=== PATIENT | male | born 1965 | race Caucasian/White ===

== ENCOUNTER 2016-11-05 08:00 | Outpatient (CLI) | payer MEDICAID | END 2016-11-05 08:01 | disposition home or self-care (01) | DX: I10 Essential (primary) hypertension (principal); I25.10 Atherosclerotic heart disease of native coronary artery without angina pectoris; I21.3 ST elevation (STEMI) myocardial infarction of unspecified site; E78.1 Pure hyperglyceridemia; E55.9 Vitamin D deficiency, unspecified; R25.2 Cramp and spasm; R39.11 Hesitancy of micturition ==

== ENCOUNTER 2017-06-24 08:36 | Outpatient (CLI) | payer MEDICAID ==
[2017-06-24 13:26] LABS: BUN - BLOOD UREA NITROGEN 20 mg/dL (6-20); CARBON DIOXIDE - CO2 23 mmol/L (21-32); CHLORIDE 104 mmol/L (101-111); CHOL/HDL RATIO 4.9 (<5.0); CHOLESTEROL 156 mg/dL; CREATININE 0.8 mg/dL (0.6-1.2); GFR - MDRD 102 (>89); GLUCOSE 119 mg/dL (70-100); HDL CHOLESTEROL 32 mg/dL; LDL/HDL RATIO 2.5 (<3.6); POTASSIUM 4.1 mmol/L (3.5-5.0); SODIUM 135 mmol/L (135-145); TRIGLYCERIDES 227 mg/dL; VLDL CHOLESTEROL 45 mg/dL
== END 2017-06-24 08:37 | disposition home or self-care (01) ==
LOC: LAB.N 08:36
PROVIDERS: ATTEND Internal Medicine Interventional Cardiology
DX: I25.10 Atherosclerotic heart disease of native coronary artery without angina pectoris (principal)
CPT/HCPCS: 36415; 80048; 80061

== ENCOUNTER 2017-07-21 11:08 | Outpatient (CLI) | payer MEDICAID | END 2017-07-21 11:09 | disposition home or self-care (01) | LOC: SC 11:08 | PROVIDERS: ATTEND Nurse Practitioner Family | DX: G47.33 Obstructive sleep apnea (adult) (pediatric) (principal) | CPT/HCPCS: 99212; 99214 ==

== ENCOUNTER 2017-08-15 11:17 | Day surgery (SDC) | payer MEDICAID ==
[2017-08-15] MEDS ORDERED: LACTATED RINGERS 1,000 ML IV ONE (11:27)
[2017-08-15] MEDS ORDERED: fentaNYL 100 MCG/2 ML VIAL IVP ONE (13:47)
[2017-08-15] MEDS ORDERED: MIDAZOLAM 2 MG/2 ML VIAL IVP ONE (13:47)
[2017-08-15 14:39] VITALS: BP 106/63
== END 2017-08-15 11:18 | disposition home or self-care (01) ==
LOC: SDS 11:17
PROVIDERS: ATTEND Surgery
PROC: 0DBP8ZZ Excision of Rectum, Via Natural or Artificial Opening Endoscopic (ICD-10-PCS; 2017-08-15)
PROC: 0DBN8ZZ Excision of Sigmoid Colon, Via Natural or Artificial Opening Endoscopic (ICD-10-PCS; principal; 2017-08-15 12:45)
DX: Z12.11 Encounter for screening for malignant neoplasm of colon (principal); K63.5 Polyp of colon; K62.1 Rectal polyp; K57.30 Diverticulosis of large intestine without perforation or abscess without bleeding; K64.8 Other hemorrhoids; I25.2 Old myocardial infarction; I10 Essential (primary) hypertension; G47.30 Sleep apnea, unspecified; K21.9 Gastro-esophageal reflux disease without esophagitis; E78.5 Hyperlipidemia, unspecified; I25.10 Atherosclerotic heart disease of native coronary artery without angina pectoris; Z95.5 Presence of coronary angioplasty implant and graft; Z87.891 Personal history of nicotine dependence
CPT/HCPCS: 45380; 45385; J7120

== ENCOUNTER 2018-07-26 07:55 | Outpatient (CLI) | payer MEDICAID ==
[2018-07-26 12:47] LABS: BASOPHILS # (AUTO) 0.1 10^3/uL (0.0-0.1); BASOPHILS % (AUTO) 1.3 %; EOSINOPHILS # (AUTO) 0.1 10^3/uL (0.0-0.7); EOSINOPHILS % (AUTO) 2.5 %; HGB - HEMOGLOBIN 15.8 g/dL (14.0-18.0); LYMPHOCYTES % (AUTO) 33.7 %; MEAN CORPUSCULAR HEMOGLOBIN 30.9 pg (27.0-31.0); MEAN CORPUSCULAR HGB CONC 34.8 g/dL (32.0-36.0); MEAN CORPUSCULAR VOLUME 88.7 fL (80.0-94.0); MEAN PLATELET VOLUME 9.4 fL (7.4-11.4); MONOCYTES # (AUTO) 0.6 10^3/uL (0.0-1.0); MONOCYTES % (AUTO) 10.4 %; NEUTROPHILS # (AUTO) 3.2 10^3/uL (1.5-6.6); NEUTROPHILS % (AUTO) 52.1 %; PLT - PLATELET COUNT 172 10^3/uL (130-450); RED BLOOD COUNT 5.11 10^6/uL (4.70-6.10); RED CELL DISTRIBUTION WIDTH 13.2 % (12.0-15.0); WHITE BLOOD COUNT 6.1 x10^3/uL (4.8-10.8)
[2018-07-26 13:07] LABS: ALBUMIN 4.5 g/dL (3.2-5.5); ALBUMIN/GLOBULIN RATIO 1.7 (1.0-2.2); ALKALINE PHOSPHATASE 76 IU/L (42-121); ALT ALANINE AMINOTRANSFERASE 71 IU/L (10-60); AST ASPARTATE AMINOTRANSFERASE 57 IU/L (10-42); BILIRUBIN,TOTAL 0.9 mg/dL (0.2-1.0); BUN - BLOOD UREA NITROGEN 17 mg/dL (6-20); CALCIUM 8.9 mg/dL (8.5-10.3); CARBON DIOXIDE - CO2 20 mmol/L (21-32); CHLORIDE 102 mmol/L (101-111); CHOL/HDL RATIO 4.4 (<5.0); CHOLESTEROL 142 mg/dL; CREATININE 0.8 mg/dL (0.6-1.2); GFR - MDRD 102 (>89); GLUCOSE 175 mg/dL (70-100); HDL CHOLESTEROL 32 mg/dL; LDL CHOLESTEROL,CALCULATED 63 mg/dL; SODIUM 134 mmol/L (135-145); TOTAL PROTEIN 7.2 g/dL (6.7-8.2); VLDL CHOLESTEROL 47 mg/dL
[2018-07-26 13:31] LABS: HB2 TOTAL 16.7 g/dL; HEMOGLOBIN A1C 0.94 g/dL; HEMOGLOBIN A1C % 7.3 % (4.6-6.2)
== END 2018-07-26 07:56 | disposition home or self-care (01) ==
LOC: LAB.N 07:55
PROVIDERS: ATTEND Nurse Practitioner Gerontology
DX: E78.1 Pure hyperglyceridemia (principal); E55.9 Vitamin D deficiency, unspecified; Z13.1 Encounter for screening for diabetes mellitus; I25.10 Atherosclerotic heart disease of native coronary artery without angina pectoris
CPT/HCPCS: 36415; 80053; 80061; 82306; 83036; 83721; 85025

== ENCOUNTER 2018-08-10 11:05 | Outpatient (CLI) | payer MEDICAID | END 2018-08-10 11:06 | disposition home or self-care (01) | LOC: SC 11:05 | PROVIDERS: ATTEND Nurse Practitioner Family | DX: G47.33 Obstructive sleep apnea (adult) (pediatric) (principal) | CPT/HCPCS: 99212; 99214 ==

== ENCOUNTER 2018-10-12 10:47 | Outpatient (CLI) | payer MEDICAID | END 2018-10-12 23:59 | disposition home or self-care (01) | LOC: RT.N 10:47 | PROVIDERS: ATTEND Nurse Practitioner Gerontology | DX: R42 Dizziness and giddiness (principal); R07.9 Chest pain, unspecified; R00.1 Bradycardia, unspecified; E11.9 Type 2 diabetes mellitus without complications; I10 Essential (primary) hypertension | CPT/HCPCS: 93005 ==

== ENCOUNTER 2018-10-20 14:01 | Emergency (ER) | payer MEDICAID ==
--- NOTE | 2018-10-20 14:20 | ED Physician Documentation ---
History of Present Illness - Stated complaint Stated Complaint: COUGH - Chief complaint Chief Complaint: Resp - Additonal information Additional information: hx from pt very nice 52 y/o male to ED with a cough unable to expectorate the sputum no fever no chills no myalgias no NV no CP no leg swelling no travel sick grandbabies Review of Systems Constitutional: denies: Fever, Chills, Myalgias Cardiac: denies: Chest pain / pressure Respiratory: reports: Cough GI: denies: Vomiting, Diarrhea Musculoskeletal: denies: Extremity swelling Immunocompromised: denies: Immunocompromised PD PAST MEDICAL HISTORY - Past Medical History Cardiovascular: Hypertension, High cholesterol, Coronary artery disease, [place] Respiratory: Sleep apnea, CPAP use, Tuberculosis Endocrine/Autoimmune: None GI: None, GERD Psych: None, Anxiety, Panic attacks, Claustrophobia Musculoskeletal: Osteoarthritis, Gout - Past Surgical History Past Surgical History: Yes Cardiovascular: Coronary stent - Present Medications Home Medications: Ambulatory Orders Medication Instructions Recorded Confirmed Aspirin [Aspir 81] 81 mg PO DAILY 08/09/13 08/15/17 Allopurinol [Zyloprim] 100 mg PO BID 05/04/14 08/15/17 Atorvastatin [Lipitor] 40 mg PO DAILY 05/04/14 08/15/17 Albuterol Sulfate [Proair Hfa 2 puffs IH QID PRN 08/12/17 08/15/17 Inhaler] Lisinopril 10 mg PO DAILY 08/15/17 08/15/17 Azithromycin [Zithromax] 250 mg PO DAILY #6 tablet 10/20/18 Benzonatate [Tessalon Perle] 100 mg PO TID PRN #20 capsule 10/20/18 Dextromethorphan/Benzocaine 1 each PO Q4H PRN #12 lozenge 10/20/18 [Cepacol Sorethroat-Cough Tayler] - Allergies Allergies/Adverse Reactions: Allergies Allergy/AdvReac Type Severity Reaction Status Date / Time Penicillins Allergy Rash Verified 10/20/18 14:05 - Social History Does the pt smoke?: No Smoking Status: Never smoker Does the pt drink ETOH?: Yes Does the pt have substance abuse?: No - Immunizations Immunizations are current?: Yes - POLST Patient has POLST: No PD ED PE NORMAL - Vitals Vital signs reviewed: Yes - General General: Alert and oriented X 3 - HEENT HEENT: PERRL - Neck Neck: Supple, no meningeal sign - Cardiac Cardiac: RRR - Respiratory Respiratory: No respiratory distress, Clear bilaterally - Abdomen Abdomen: Soft - Extremities Extremities: No edema, No calf tenderness / cord - Neuro Neuro: Alert and oriented X 3 Eye Opening: Spontaneous Results - Vitals Vitals: Vital Signs - 24 hr 10/20/18 14:03 Temperature 36.1 C L Heart Rate 71 Respiratory 16 Rate Blood Pressure 136/71 H O2 Saturation 5 L Oxygen O2 Source Room air - Rads (name of study) CXR Radiology: See rad report (per rad [facility], per my read streaky retrocardiac infiltrate) Departure - Departure Disposition: Home, Self Care Clinical Impression: Pneumonia Qualifiers: Pneumonia type: due to unspecified organism Laterality: left Lung location: unspecified part of lung Qualified Code(s): J18.9 - Pneumonia, unspecified organism Condition: Good Instructions: ED Pneumonia Adult Follow-Up: Joan Guan, [employer]URANCE CUST[employer]ER SERVICE SPECIALIST [Primary Care Provider] - Prescriptions: Azithromycin [Zithromax] 250 mg PO DAILY #6 tablet Benzonatate [Tessalon Perle] 100 mg PO TID PRN #20 capsule PRN Reason: Cough Dextromethorphan/Benzocaine [Cepacol Sorethroat-Cough Tayler] 1 each PO Q4H PRN #12 lozenge PRN Reason: painful cough or sore throat
--- NOTE | 2018-10-20 15:18 | XRAY Report ---
Reason: cough Procedure Date: 10/20/2018 Accession Number: [id number] / [id number] Procedure: XR - Chest 2 View X-Ray CPT Code: 93826 FULL RESULT: EXAM: CHEST RADIOGRAPHY EXAM DATE: 10/20/2018 02:58 PM. CLINICAL HISTORY: Dry cough for 1 week. COMPARISON: 05/04/2014 10:20 PM. TECHNIQUE: 2 views. FINDINGS: Lungs/Pleura: No focal opacities evident. No pleural effusion. No pneumothorax. Normal volumes. Mediastinum: Heart and mediastinal contours are unremarkable. Other: No compression fractures. IMPRESSION: Normal 2-view chest radiography. [facility]
[2018-10-20 15:41] VITALS: BP 122/78
== END 2018-10-20 15:41 | disposition home or self-care (01) ==
LOC: ED 14:01
DX: J18.9 Pneumonia, unspecified organism (principal); I25.10 Atherosclerotic heart disease of native coronary artery without angina pectoris; I25.2 Old myocardial infarction; E78.00 Pure hypercholesterolemia, unspecified; Z79.82 Long term (current) use of aspirin
CPT/HCPCS: 71046; 99283

== ENCOUNTER 2018-10-26 08:07 | Outpatient (CLI) | payer MEDICAID ==
[2018-10-26 13:14] LABS: CALCIUM 9.1 mg/dL (8.5-10.3)
[2018-10-26 13:55] LABS: HB2 TOTAL 17.4 g/dL; HEMOGLOBIN A1C 0.62 g/dL; HEMOGLOBIN A1C % 5.4 % (4.6-6.2)
== END 2018-10-26 23:59 | disposition home or self-care (01) ==
LOC: LAB.N 08:07
PROVIDERS: ATTEND Nurse Practitioner Gerontology
DX: E11.9 Type 2 diabetes mellitus without complications (principal)
CPT/HCPCS: 36415; 80048; 83036; 84443

== ENCOUNTER 2018-10-31 08:00 | Outpatient (CLI) | payer MEDICAID | END 2018-10-31 23:59 | disposition home or self-care (01) | LOC: LAB.N 08:00 | PROVIDERS: ATTEND Registered Nurse | DX: R00.1 Bradycardia, unspecified (principal) | CPT/HCPCS: 36415; 84436 ==

== ENCOUNTER 2019-02-16 08:05 | Outpatient (CLI) | payer MEDICAID ==
[2019-02-16 12:56] LABS: HB2 TOTAL 16.9 g/dL; HEMOGLOBIN A1C 0.66 g/dL; HEMOGLOBIN A1C % 5.7 % (4.6-6.2)
== END 2019-02-16 23:59 | disposition home or self-care (01) ==
LOC: LAB.N 08:05
PROVIDERS: ATTEND Nurse Practitioner Gerontology
DX: E11.9 Type 2 diabetes mellitus without complications (principal)
CPT/HCPCS: 36415; 83036

== ENCOUNTER 2019-04-02 09:15 | Outpatient (CLI) | payer MEDICAID | END 2019-04-02 09:16 | disposition home or self-care (01) | LOC: SC 09:15 | PROVIDERS: ATTEND Internal Medicine Pulmonary Disease | DX: G47.33 Obstructive sleep apnea (adult) (pediatric) (principal) | CPT/HCPCS: 99212; 99213 ==

== ENCOUNTER 2019-08-11 06:47 | Emergency (ER) | payer MEDICAID ==
[2019-08-11 06:55] VITALS: BP 138/77
--- NOTE | 2019-08-11 07:02 | ED Physician Documentation ---
History of Present Illness - Stated complaint Stated Complaint: COUGH - Chief complaint Chief Complaint: Heent - Additonal information Additional information: This is a 53-year-old male with a history of past HI, who presents with 1 day of cough, runny nose, sore throat, and nasal congestion. Patient recently traveled back from [place], and had multiple sick exposures while on the plane. He has not had any fever. No chest pain, shortness of breath, abdominal pain, nausea or vomiting. He states that his irritated throat is what is bothering him the most, when he swallows he has some discomfort. Review of Systems Constitutional: denies: Fever Nose: reports: Rhinorrhea / runny nose Cardiac: denies: Chest pain / pressure Respiratory: denies: Dyspnea Immunocompromised: denies: Immunocompromised PD PAST MEDICAL HISTORY - Past Medical History Past Medical History: Yes Cardiovascular: Hypertension, High cholesterol, Coronary artery disease, [place] Respiratory: Sleep apnea, CPAP use, Tuberculosis Endocrine/Autoimmune: None GI: None, GERD Psych: None, Anxiety, Panic attacks, Claustrophobia Musculoskeletal: Osteoarthritis, Gout - Past Surgical History Past Surgical History: Yes Cardiovascular: Coronary stent - Present Medications Home Medications: Ambulatory Orders Medication Instructions Recorded Confirmed Aspirin [Aspir 81] 81 mg PO DAILY 08/09/13 08/15/17 Allopurinol [Zyloprim] 100 mg PO BID 05/04/14 08/15/17 Atorvastatin [Lipitor] 40 mg PO DAILY 05/04/14 08/15/17 Albuterol Sulfate [Proair Hfa 2 puffs IH QID PRN 08/12/17 08/15/17 Inhaler] Lisinopril 10 mg PO DAILY 08/15/17 08/15/17 Albuterol Sulfate [Proair Hfa 2 puffs INH Q4H PRN #1 inhaler 10/20/18 Inhaler] Azithromycin [Zithromax] 250 mg PO DAILY #6 tablet 10/20/18 Benzonatate [Tessalon Perle] 100 mg PO TID PRN #20 capsule 10/20/18 Dextromethorphan/Benzocaine 1 each PO Q4H PRN #12 lozenge 10/20/18 [Cepacol Sorethroat-Cough Tayler] Albuterol Sulf [Ventolin Hfa 1 - 2 puffs INH Q4HR PRN #1 inhaler 08/11/19 Inhaler] Fluticasone Propionate [24 Hour 9.9 ml NS DAILY PRN #1 spray.susp 08/11/19 Allergy] - Allergies Allergies/Adverse Reactions: Allergies Allergy/AdvReac Type Severity Reaction Status Date / Time Penicillins Allergy Rash Verified 08/11/19 06:51 - Social History Does the pt smoke?: No Smoking Status: Former smoker Does the pt drink ETOH?: Yes Does the pt have substance abuse?: No - Immunizations Immunizations are current?: Yes - POLST Patient has POLST: No PD ED PE NORMAL - Vitals Vital signs reviewed: Yes - General General: Alert and oriented X 3, No acute distress - HEENT HEENT: Atraumatic, Other (Mild posterior pharynx erythema, no exudate. Uvula is midline. Normal range of motion of neck. Clear rhinorrhea) - Neck Neck: Supple, no meningeal sign - Cardiac Cardiac: RRR - Respiratory Respiratory: Clear bilaterally - Abdomen Abdomen: Soft, Non tender - Derm Derm: Warm and dry - Extremities Extremities: No deformity - Neuro Neuro: Alert and oriented X 3 - Psych Psych: Normal mood, Normal affect Results - Vitals Vitals: Vital Signs - 24 hr 08/11/19 06:51 Temperature 36.6 C Heart Rate 60 Respiratory 16 Rate Blood Pressure 138/77 H O2 Saturation 98 Oxygen O2 Source Room air PD MEDICAL DECISION MAKING - ED course Complexity details: considered differential (URI, sinusitis, pneumonia) ED course: Patient is well-appearing with unremarkable vital signs. No signs of strep throat, FITTER TACKER, or more serious infection at this time. The short course of illness and clear lungs make pneumonia highly unlikely. He appears to have a viral upper respiratory infection, I discussed supportive care with him and also prescribed him some fluticasone spray to help with feeling of ear fullness (No signs of otitis media on exam today), And albuterol and on his request because he states in the past this is helped when he has developed some wheezing associated with colds. He has no wheezing or shortness of breath at this time. He is given dexamethasone for his sore throat, I did review this will elevate his blood sugar. I discussed return precautions, supportive care, and patient was discharged home. Departure - Departure Disposition: 01 Home, Self Care Clinical Impression: URI (upper respiratory infection) Qualifiers: URI type: unspecified viral URI Qualified Code(s): J06.9 - Acute upper respiratory infection, unspecified Condition: Good Instructions: ED URI Viral Follow-Up: Joan Guan ARNP [Primary Care Provider] - As Needed Prescriptions: Albuterol Sulf [Ventolin Hfa Inhaler] 1 - 2 puffs INH Q4HR PRN #1 inhaler PRN Reason: Shortness Of Air/Wheezing Fluticasone Propionate [24 Hour Allergy] 9.9 ml NS DAILY PRN #1 spray.susp PRN Reason: Cold Symptons Comments: You appear to have a viral upper respiratory infection. You may try the fluticasone spray, and [id number] cold relief medications. Check the label of the cold medicine you are taking, if it does not have any nonsteroidal anti-inflammatory medications such as ibuprofen or naproxen in it, you may also take 600 mg of ibuprofen every 6 hours as needed for pain or fever. The steroid we have given you here should help with inflammation of your throat. It may raise your blood sugar for a couple days. If you are having worsening symptoms please return to the emergency department, otherwise you may follow-up with your primary care provider.
[2019-08-11] MEDS ORDERED: CHERRY SYRUP 10 ML UDC PO ONE (07:23)
[2019-08-11] MEDS ORDERED: DEXAMETHASONE 10 MG/ML VIAL PO STA (07:23)
== END 2019-08-11 07:33 | disposition home or self-care (01) ==
LOC: ED 06:47
DX: J06.9 Acute upper respiratory infection, unspecified (principal); J02.9 Acute pharyngitis, unspecified; I10 Essential (primary) hypertension; I25.10 Atherosclerotic heart disease of native coronary artery without angina pectoris; I25.2 Old myocardial infarction; Z95.5 Presence of coronary angioplasty implant and graft; Z79.82 Long term (current) use of aspirin; Z87.891 Personal history of nicotine dependence
CPT/HCPCS: 99282; 99284; A9270

== ENCOUNTER 2019-08-28 09:58 | Outpatient (CLI) | payer MEDICAID ==
--- NOTE | 2019-08-28 10:34 | SLEEP CARE CONSULTATION ---
Information from patient questionnaire entered by Lore Mancera. I have reviewed and concur with the information entered by Lore Mancera. This document represents the service I personally performed and the decisions made by me, Saira Arellano MD, [facility]. History of Present Illness Previous diagnosis: Moderate, Obstructive Sleep Apnea-Hypopnea Syndrome AHI: 26.3 Reason for follow up: first compliance after device update Equipment type: CPAP Equipment obtained from: [employer] Prior sleep studies: Yes HPI additional information: HPI: Mr. Ruiz returned today for follow up of nasal CPAP therapy. He was diagnosed to have moderate obstructive sleep apnea-hypopnea syndrome. The got his supplies from [employer] and supposed to get a new machine from [facility] but [facility] could not accommodate him. He wears Respironics Nuance nasal pillows. He reports using the device nightly and all through the night. The compliance report shows usage in 27 nights out of the past 30 nights, averaging 10 hours a night. He complained of no particular problem with the device such as soreness on the face, dry nose, epistaxis, nasal congestion or headache. He thinks that the pressure of 11 cmH2O is comfortable. On the CPAP therapy he notices improvement in his sleep quality, and that he wakes up feeling fresher in the morning and more awake/alert during the day. His notices no snore at all. The average residual AHI is 1.1; and air leak, 2 seconds a night. CPAP Compliance Data - Data Reviewed with Patient Average duration of nightly device use: 9H 59M Compliance rate %: 90 Current pressure setting (cmH2O): 11 Humidity settin Heated hose setting: off Average residual AHI: 1.1 Average large leak: 2s Subjective Patient concerns: reports: nasal congestion Current pressure setting perceived as: comfortable Initial [place] Sleepiness Scale score: 15 Current [place] Sleepiness Scale score: 5 Allergies and Home Medications Drug allergies reviewed: Yes Home medication list reviewed: Yes Review of Systems Review of systems same as previous: Yes Physical Exam Weight: 268 lb Impression and Plan IMPRESSION: 1. Obstructive Sleep Apnea-Hypopnea Syndrome, moderate, with the patient doing well on nasal CPAP therapy. He has excellent compliance and significant clinical improvement. The current pressure appears effective and comfortable. Overall, he is very satisfied with treatment and plans to continue with it long- term. I will again write a prescription for a new autoCPAP set between 8 and 12 cmH2O. He will go to a different durable medical supplier. PLAN: 1. Prescription made for an autoCPAP, heated humidifier, and related supplies. 2. Try to lose weight 3. Return for follow up after one month on the new machine. I spent 100% of this 20 minute visit face to face with the patient with greater than 50% of this was spent time counseling the patient and coordination of care.
== END 2019-08-28 09:59 | disposition home or self-care (01) ==
LOC: SC 09:58
PROVIDERS: ATTEND Internal Medicine Pulmonary Disease
DX: G47.33 Obstructive sleep apnea (adult) (pediatric) (principal)
CPT/HCPCS: 99212; 99213

== ENCOUNTER 2020-08-21 08:00 | Outpatient (CLI) | payer MEDICAID ==
[2020-08-21 12:08] LABS: ALBUMIN 4.3 g/dL (3.2-5.5); ALBUMIN/GLOBULIN RATIO 1.4 (1.0-2.2); ALKALINE PHOSPHATASE 65 IU/L (42-121); ALT ALANINE AMINOTRANSFERASE 28 IU/L (10-60); AST ASPARTATE AMINOTRANSFERASE 25 IU/L (10-42); BUN - BLOOD UREA NITROGEN 22 mg/dL (6-20); CALCIUM 9.1 mg/dL (8.5-10.3); CARBON DIOXIDE - CO2 22 mmol/L (21-32); CHLORIDE 104 mmol/L (101-111); CHOL/HDL RATIO 4.5 (<5.0); CHOLESTEROL 149 mg/dL; CREATININE 0.7 mg/dL (0.6-1.2); GLUCOSE 101 mg/dL (70-100); HDL CHOLESTEROL 33 mg/dL; LDL CHOLESTEROL,CALCULATED 68 mg/dL; LDL/HDL RATIO 2.1 (<3.6); SODIUM 137 mmol/L (135-145); TOTAL PROTEIN 7.4 g/dL (6.7-8.2); VLDL CHOLESTEROL 48 mg/dL
[2020-08-21 12:11] LABS: BASOPHILS % (AUTO) 0.8 %; EOSINOPHILS # (AUTO) 0.2 10^3/uL (0.0-0.7); EOSINOPHILS % (AUTO) 3.3 %; LYMPHOCYTES # (AUTO) 1.7 10^3/uL (1.5-3.5); LYMPHOCYTES % (AUTO) 35.7 %; MEAN CORPUSCULAR HEMOGLOBIN 29.7 pg (27.0-31.0); MEAN CORPUSCULAR HGB CONC 33.3 g/dL (32.0-36.0); MEAN PLATELET VOLUME 10.9 fL (7.4-11.4); MONOCYTES # (AUTO) 0.6 10^3/uL (0.0-1.0); MONOCYTES % (AUTO) 12.2 %; NEUTROPHILS # (AUTO) 2.3 10^3/uL (1.5-6.6); PLT - PLATELET COUNT 173 10^3/uL (130-450); RED BLOOD COUNT 4.72 10^6/uL (4.70-6.10); RED CELL DISTRIBUTION WIDTH 13.9 % (12.0-15.0); WHITE BLOOD COUNT 4.9 x10^3/uL (4.8-10.8)
[2020-08-21 12:23] LABS: HEMOGLOBIN A1c% 5.9 % (4.27-6.07)
== END 2020-08-21 23:59 | disposition home or self-care (01) ==
LOC: LAB.WCP 08:00
PROVIDERS: ATTEND Nurse Practitioner Family
DX: E11.9 Type 2 diabetes mellitus without complications (principal); I10 Essential (primary) hypertension; E78.1 Pure hyperglyceridemia
CPT/HCPCS: 36415; 80053; 80061; 83036; 83721; 84443; 85025

== ENCOUNTER 2020-09-16 09:26 | Outpatient (CLI) | payer MEDICAID ==
--- NOTE | 2020-09-16 10:04 | SLEEP CARE CONSULTATION ---
Information from patient questionnaire entered by Snehal Garcia. I have reviewed and concur with the information entered by Snehal Garcia. This document represents the service I personally performed and the decisions made by me, Saira Arellano MD, [facility]. History of Present Illness Service Date and Time: 09/16/2020925 Previous diagnosis: Moderate, Obstructive Sleep Apnea-Hypopnea Syndrome AHI: 26.3 (in 2013) Reason for follow up: annual (last seen 08/2019) Equipment type: CPAP Equipment obtained from: [employer] Prior sleep studies: Yes Year and Where: 2013 - [facility] Type of Sleep Study: Polysomnography HPI additional information: HPI: Mr. Ruiz returned today for follow up of nasal CPAP therapy. He was diagnosed to have moderate obstructive sleep apnea-hypopnea syndrome. The patient is still using his old REM Star autoCPAP from [employer]. A new mach ine was ordered but [employer] told him that [employer] would not pay for a new one unless the old one is broken. He wears Respironics Nuance nasal pillows. He reports using the device nightly and all through the night. The compliance report shows usage in 29 nights out of the past 30 nights, averaging 10.3 hours a night. The > 4 hour compliance rate for the past 30 days is 97%. He complained of dryness but the humidity is set at 0. He says any higher setting will cause condensation despite the heated tube (however, the tube temperature is also at 0). He thinks that the pressure of 11 cmH2O is comfortable. On the CPAP therapy he notices improvement in his sleep quality, and that he wakes up feeling fresher in the morning and more awake/alert during the day. [place] Sleepiness Scale score is 3. The average residual AHI is 3.1; and air leak, 19 seconds a night. CPAP Compliance Data - Data Reviewed with Patient Average duration of nightly device use: 10 hr 17 min Compliance rate %: 96.7 Current pressure setting (cmH2O): 11 Humidity settin Average residual AHI: 3.1 Average large leak: 19 sec Subjective Patient concerns: reports: nasal congestion, other (headache) Initial [place] Sleepiness Scale score: 15 (in 2013) Current [place] Sleepiness Scale score: 3 Allergies and Home Medications Drug allergies reviewed: Yes Home medication list reviewed: Yes Review of Systems Review of systems same as previous: Yes Physical Exam Vital signs obtained and entered by: To minimize the risk of COVID-19 exposure, detailed exam was not perfo Height: 5 ft 9 in Weight: 230 lb Body Mass Index: 34.0 BMI Classification: Obese Impression and Plan IMPRESSION: 1. Obstructive Sleep Apnea-Hypopnea Syndrome, moderate, with the patient doing well on nasal CPAP therapy. He has excellent compliance and significant clinical improvement. The current pressure appears effective and comfortable. Overall, he is very satisfied with treatment and plans to continue with it long- term. The heated tube might not be functioning properly. I advised him to turn on the tube heat and set it at 5. If he still gets condensation, then his m achine may need to be replaced. PLAN: 1. Continue with CPAP set at 11 cmH2O. 2. Turn up the tube temperature and humidity. 3. Return for follow up after one month to recheck on the tube heat. Visit Type: In Office Time Spent with Patient (minutes): 15 Provider Statement: I spent 100% of the Face to Face Visit with the patient with greater than 50% spent counseling the patient and coordination of care.
== END 2020-09-16 09:27 | disposition home or self-care (01) ==
LOC: SC 09:26
PROVIDERS: ATTEND Internal Medicine Pulmonary Disease
DX: G47.33 Obstructive sleep apnea (adult) (pediatric) (principal); E66.9 Obesity, unspecified; Z68.34 Body mass index [BMI] 34.0-34.9, adult
CPT/HCPCS: 99212; 99213

== ENCOUNTER 2020-10-20 08:47 | Outpatient (CLI) | payer MEDICAID ==
--- NOTE | 2020-10-20 09:32 | SLEEP CARE CONSULTATION ---
Information from patient questionnaire entered by Snehal Garcia. I have reviewed and concur with the information entered by Snehal Garcia. This document represents the service I personally performed and the decisions made by me, Saira Arellano MD, [facility]. History of Present Illness Service Date and Time: 10/20/2020 0847 Previous diagnosis: Moderate, Obstructive Sleep Apnea-Hypopnea Syndrome AHI: 26.3 (in 2013) Reason for follow up: one month Equipment type: CPAP Equipment obtained from: [employer] Mask style: Nasal pillows Mask brand: Respironics (Nuance) Prior sleep studies: Yes Year and Where: 2013 - [facility] Type of Sleep Study: Polysomnography HPI additional information: HPI: Mr. Ruiz returned today for follow up of nasal CPAP therapy. He was diagnosed to have moderate obstructive sleep apnea-hypopnea syndrome. The patient is still using his old REM Star autoCPAP from [employer]. A new machine was ordered but [employer] told him that [employer] would not pay for a new one unless the old one is broken. He wears Respironics Nuance nasal pillows. He has had problem with water condensation in the hose and wondering if the heated hose is broken. This past month he did keep the tube temperature at 5 and humidity at 3. He still gets condensation. He also complains of the air being too warm and has to use fan to blow on him all night. He reports using the device nightly and all through the night. The compliance report shows usage in 30 nights out of the past 30 nights, averaging 10.7 hours a night. The > 4 hour compliance rate for the past 30 days is 100%. He thinks that the pressure of 11 cmH2O is comfortable. On the CPAP therapy he notices improvement in his sleep quality, and that he wakes up feeling fresher in the morning and more awake/alert during the day. [place] Sleepiness Scale score is 7. The average residual AHI is 3.5; and air leak, 42 seconds a night. PE: To minimize the risk of COVID-19 exposure, detailed exam was not performed. CPAP Compliance Data - Data Reviewed with Patient Average duration of nightly device use: 10 hr 40 min Compliance rate %: 100 Current pressure setting (cmH2O): 11 Humidity settin Heated hose settin Average residual AHI: 3.5 Average large leak: 42 sec Subjective Patient concerns: reports: condensation in mask/hose, nasal congestion, dry mouth, nose, throat, other (headache) Current pressure setting perceived as: comfortable Initial [place] Sleepiness Scale score: 15 (in 2013) Current [place] Sleepiness Scale score: 7 Allergies and Home Medications Drug allergies reviewed: Yes Home medication list reviewed: Yes Review of Systems Review of systems same as previous: Yes Physical Exam Vital signs obtained and entered by: PE: To minimize the risk of COVID-19 exposure, detailed exam was not perfo Height: 5 ft 9 in Weight: 266 lb Body Mass Index: 39.2 BMI Classification: Obese Impression and Plan IMPRESSION: 1. Obstructive Sleep Apnea-Hypopnea Syndrome, moderate, with the patient doing well on nasal CPAP therapy. He has excellent compliance and significant clinical improvement. The current pressure appears effective and comfortable. Overall, he is very satisfied with treatment and plans to continue with it long- term. The heated tube is not functioning properly. I will order him a new machine and set it between 8 and 12 cmH2O. PLAN: 1. Prescription made for an autoCPAP, heated humidifier, and related supplies. 2. Return for follow up after one month of using the new machine. This visit may have to be a video telemedicine because he will be in [place] for the next 3 months. Visit Type: In Office Provider Statement: I spent 100% of the Face to Face Visit with the patient with greater than 50% spent counseling the patient and coordination of care.
== END 2020-10-20 08:48 | disposition home or self-care (01) ==
LOC: SC 08:47
PROVIDERS: ATTEND Internal Medicine Pulmonary Disease
DX: G47.33 Obstructive sleep apnea (adult) (pediatric) (principal); E66.9 Obesity, unspecified; Z68.39 Body mass index [BMI] 39.0-39.9, adult
CPT/HCPCS: 99212; 99213

== ENCOUNTER 2020-11-03 12:17 | Outpatient (CLI) | payer MEDICAID ==
--- NOTE | 2020-11-03 13:05 | CT Report ---
PROCEDURE: LOWER EXTREMITY WO - LT INDICATIONS: DISPLACED FRACTURE OF MEDIAL MALLOULUS OF L TIBIA TECHNIQUE: Noncontrast 3 mm axial sections acquired of the left ankle, with coronal and sagittal reformats. COMPARISON: None. FINDINGS: Image quality: Excellent. Bones: There is an oblique fracture of the medial malleolus extending into the mortise joint with up to 2 mm gap along the fracture line at the articular surface. There is up to a 5 mm gap along the heath peromedial fracture line. A few tiny comminuted osseous fragments are seen along the fracture line in cluding a 5 mm fragment at the posterior articular surface. No additional tibial fracture is seen. The fibula and the talus are intact. Multiple small well-corti cated osseous fragments are seen distal to the medial malleolar tip that may be related to remote chai or trauma. Tiny posterior and plantar calcaneal spurs are present. There is a type II os naviculare. Soft tissues: Soft tissue edema is seen surrounding the ankle. The posterior tibialis tendon is seen along the posterior aspect of the fracture line without full-thickness tearing. However, the tendons , ligaments, and articular cartilages are not well evaluated with CT. IMPRESSION: Minimally displaced oblique fracture of the medial malleolus with up to 2 mm gap along the fracture l ine at the articular surface. A few tiny comminuted fracture fragments are seen along the fracture li ne. Reviewed by: Joel Ernandez MD on 11/03/2020 1:04 PM PST Approved by: Joel Ernandez MD on 11/03/2020 1:04 PM PST Station ID: [id number]
[2020-11-03 14:57] LABS: C. PNEUMONIAE- RESP PCR PANEL NOT DETECTED
== END 2020-11-03 12:18 | disposition home or self-care (01) ==
LOC: DI 12:17
PROVIDERS: ATTEND Orthopaedic Surgery
DX: Z01.812 Encounter for preprocedural laboratory examination (principal); S82.52XA Displaced fracture of medial malleolus of left tibia, initial encounter for closed fracture; Z20.828 Contact with and (suspected) exposure to other viral communicable diseases
CPT/HCPCS: 0202U; 73700

== ENCOUNTER 2020-11-05 07:27 | Day surgery (SDC) | payer MEDICAID ==
[~2020-11-05 07:27] MED LIST: LACTATED RINGERS 1,000 ML IV ONE
[2020-11-05] MEDS ORDERED: ACETAMINOPHEN 1,000 MG/100 ML 100 ML IV ONE (07:32)
[2020-11-05] MEDS ORDERED: ceFAZolin 2 GM/50 ML 2 GM/50 ML BAG IV ONE (07:32)
[2020-11-05] MEDS ORDERED: CELECOXIB 100 MG CAPSULE PO ONE (07:32)
[2020-11-05] MEDS ORDERED: GABAPENTIN 400 MG CAPSULE ONE (07:32)
[2020-11-05] MEDS ORDERED: ePHEDrine 50 MG/ML VIAL IVP PRN (08:13)
[2020-11-05] MEDS ORDERED: ATROPINE ABBOJECT 1 MG/10 ML SYRINGE IVP PRN (08:13)
[2020-11-05] MEDS ORDERED: MORPHINE 2 MG/ML CARPUJECT IVP PRN (08:13)
[2020-11-05] MEDS ORDERED: NALOXONE 0.4 MG/ML VIAL IVP PRN (08:13)
[2020-11-05] MEDS ORDERED: HYDROmorphone 0.5 MG/0.5 ML SYRINGE IVP PRN (08:13)
[2020-11-05] MEDS ORDERED: METOCLOPRAMIDE 10 MG/2 ML VIAL IVP PRN (08:13)
[2020-11-05] MEDS ORDERED: fentaNYL 100 MCG/2 ML VIAL IVP PRN (08:13)
[2020-11-05] MEDS ORDERED: ONDANSETRON 4 MG/2 ML VIAL IVP PRN (08:13)
--- NOTE | 2020-11-05 08:16 | ANESTHESIA ---
Pre-Anesthesia VS, & Labs - Diagnosis left ankle fracture - Procedure ORIF Ankle Vital Signs: Temp Pulse Resp BP Pulse Ox 36.6 C 57 L 18 150/95 H 99 11/05/20 07:32 11/05/20 07:32 11/05/20 07:32 11/05/20 07:32 11/05/20 07:32 Height: 5 ft 9 in Weight (kg): 121.1 kg Body Mass Index: 39.4 BMI Classification: Obese - NPO >8 hours - Lab Results Current Lab Results: Laboratory Tests 11/05/20 08:10: POC Whole Bld Glucose 137 H Lab results reviewed: Yes Home Medications and Allergies Home Medications: Ambulatory Orders Ascorbic Acid [Vitamin C] 1,000 mg PO DAILY 11/03/20 Cholecalciferol [Vitamin D3] 5,000 unit PO DAILY 11/03/20 Diclofenac Sodium [Voltaren] 2 gm TP BID PRN 11/03/20 Escitalopram Oxalate [Lexapro] 20 mg PO DAILY 11/03/20 Ibuprofen [Motrin] 600 mg PO Q6H PRN 11/03/20 Multivitamin 1 each PO DAILY 11/03/20 Nitroglycerin [Nitrostat] 0.4 mg SL Q5MIN PRN 11/03/20 Tamsulosin HCl [Flomax] 0.8 mg PO QPM 11/03/20 Zolpidem Tartrate [Ambien] 10 mg PO QPM PRN 11/03/20 metFORMIN [Glucophage] 500 mg PO BIDWM 11/03/20 oxyCODONE/ACET 5/325 [Percocet 5 mg/325 mg] 1 tab PO QID PRN 11/03/20 Active Medications Atropine Sulfate (Atropine Abboject 1 Mg/10 Ml Syringe) 0.5 mg IVP Q5M PRN PRN Reason: Bradycardia Stop: 11/06/20 08:13 Ephedrine Sulfate (Ephedrine 50 Mg/Ml Vial) 10 mg IVP Q5M PRN PRN Reason: HYPOTENSION Stop: 11/06/20 08:13 Fentanyl (Fentanyl 100 Mcg/2 Ml Vial) 25 - 50 mcg IVP Q5M PRN PRN Reason: BREAKTHROUGH PAIN (2nd Choice) Stop: 11/06/20 08:13 Hydromorphone HCl (Hydromorphone 0.5 Mg/0.5 Ml Syringe) 0.2 - 0.6 mg IVP Q5M PRN PRN Reason: PAIN (First Choice) Stop: 11/06/20 08:13 Lactated Ringer's (Lr) 1,000 mls @ 100 mls/hr IV .Q10H EBER Stop: 11/05/20 18:59 Metoclopramide HCl (Metoclopramide 10 Mg/2 Ml Vial) 10 mg IVP Q6HR PRN PRN Reason: N/V not relieved by Zofran Morphine Sulfate (Morphine 2 Mg/Ml Carpuject) 2 - 4 mg IVP Q5M PRN PRN Reason: PAIN (3rd Choice) Stop: 11/06/20 08:13 Naloxone HCl (Naloxone 0.4 Mg/Ml Vial) 0.1 mg IVP Q2M PRN PRN Reason: RESP RATE <8 Stop: 11/06/20 08:13 Ondansetron HCl (Ondansetron 4 Mg/2 Ml Vial) 4 mg IVP ONCE PRN PRN Reason: N/V (First Choice) Stop: 11/06/20 08:13 Aspirin [Aspir 81] 81 mg PO DAILY 08/09/13 Atorvastatin [Lipitor] 40 mg PO DAILY 05/04/14 allopurinoL [Zyloprim] 100 mg PO BID 05/04/14 lisinopriL [Lisinopril] 10 mg PO DAILY 08/15/17 Ascorbic Acid [Vitamin C] 1,000 mg PO DAILY 11/03/20 Cholecalciferol [Vitamin D3] 5,000 unit PO DAILY 11/03/20 Diclofenac Sodium [Voltaren] 2 gm TP BID PRN 11/03/20 Escitalopram Oxalate [Lexapro] 20 mg PO DAILY 11/03/20 Ibuprofen [Motrin] 600 mg PO Q6H PRN 11/03/20 Multivitamin 1 each PO DAILY 11/03/20 Nitroglycerin [Nitrostat] 0.4 mg SL Q5MIN PRN 11/03/20 Tamsulosin HCl [Flomax] 0.8 mg PO QPM 11/03/20 Zolpidem Tartrate [Ambien] 10 mg PO QPM PRN 11/03/20 metFORMIN [Glucophage] 500 mg PO BIDWM 11/03/20 oxyCODONE/ACET 5/325 [Percocet 5 mg/325 mg] 1 tab PO QID PRN 11/03/20 Allergies/Adverse Reactions: Allergies Allergy/AdvReac Type Severity Reaction Status Date / Time Penicillins Allergy Rash Verified 08/11/19 06:51 Anes History & Medical History - Anesthetic History Anesthesia Complications: reports: No previous complications Family history of Anesthesia Complications: Denies Family history of Malignant Hyperthermia: Denies - Medical History Cardiovascular: reports: Hypertension, High cholesterol, Coronary artery disease, [place] Pulmonary: reports: Sleep apnea, CPAP use, Tuberculosis Gastrointestinal: reports: GERD, Diverticulitis Urinary: reports: Benign prostate hypertrophy Musculoskeletal: reports: Osteoarthritis, Gout Endocrine/Autoimmune: reports: Type 2 diabetes Skin: reports: Other Smoking Status: Former smoker - Surgical History General: Colonoscopy Cardiothoracic: Coronary stent Exam General: Alert, Oriented x3, Cooperative, No acute distress Dental: WNL Mouth Openin Fingerbreadth Respiratory: Lungs clear, Normal breath sounds, No respiratory distress, No accessory muscle use Cardiovascular: Regular rate, Normal S1, Normal S2, No murmurs Plan Anesthesia Type: General, Popliteal Block, Adductor Block Regional Block: Per Surgeon's request for Post Op pain control Consent for Procedure(s) Verified and Reviewed: Yes Code Status: Attempt Resuscitation ASA classification: 3-Severe systemic disease Is this case an emergency?: No
[2020-11-05] MEDS ORDERED: BACITRACIN ZINC OINT 1 PACKET TOP ONE ×2 (08:29→09:17)
[2020-11-05] MEDS ORDERED: MIDAZOLAM 2 MG/2 ML VIAL ONE (08:32)
[2020-11-05] MEDS ORDERED: LIDOCAINE-MPF 2% 5 ML VIAL ONE (08:36)
[2020-11-05] MEDS ORDERED: ROCURONIUM 50 MG/5 ML VIAL ONE (08:36)
[2020-11-05] MEDS ORDERED: PROPOFOL 200 MG/20 ML VIAL IVP ONE (08:36)
[2020-11-05] MEDS ORDERED: ROPIVACAINE 0.5% PF 20 ML AMPULE ONE (08:38)
[2020-11-05] MEDS ORDERED: DEXAMETHASONE 4 MG/ML VIAL ONE (08:48)
[2020-11-05] MEDS ORDERED: LACTATED RINGERS 1,000 ML IV SCH (09:00)
--- NOTE | 2020-11-05 10:45 | OPERATIVE REPORT ---
Operative Report - General Procedure Date: 11/05/20 Planned Procedure: Open reduction internal fixation medial malleolus left ankle Pre-Op Diagnosis: Closed, displaced intra-articular fracture medial malleolus left ankle Procedure Performed: Open reduction internal fixation medial malleolus left ankle with Acumed hooked buttress plate. Post Op Diagnosis: Same as preoperative diagnosis - Procedure Note Primary Surgeon: Dionicio Mcclain MD Secondary Surgeon: Bharat PIERRE Anesthesia Technique: General ET tube, Regional block Estimated Blood Loss (mL): 25 Indications: This is a obese 55-year-old gentleman who sustained a fall associated with being hit by a log within the past week. He sustained an isolated injury primarily to left ankle with pain and swelling, tenderness over the medial malleolus. He did have a blister over the anterior aspect of the lateral malleolus. The blister was superficial, debrided in the office and sterilely dressed. His swelling has decreased considerably, no fracture blisters, no sign of compartment syndrome and skin intact to the medial malleolus. His x-rays were obtained and CT scanning of left ankle. These reveal intra-articular displaced fracture of the medial malleolus left ankle Findings: There was a displaced intra-articular fracture of the medial malleolus. The joint surfaces other than the fracture were intact and I did not find any loose bodies within the joint.. Complications: None noted - Other Other Information/Narrative: The patient was brought to the operating room and placed in a supine position. A pneumatic tourniquet was applied to the proximal left thigh over cast padding. A foam bolster was placed under the operative leg. The left lower extremity was prepped and draped in a sterile manner in the usual fashion. A Betadine prep was used since there was a blister over the anterolateral left ankle measuring approximately an inch. Most of this had reepithelialized and there was no sign of gross infection at the blister site. The skin over the medial malleolus was completely intact. A timeout procedure was performed by the entire operating room team and all were in agreement. He did receive 2 g of Ancef intravenously and tolerated this medication well. The left lower extremity was exsanguinated and the pneumatic tourniquet was elevated 250 mmHg. A straight anteromedial incision was made approximately 7 cm in length. The saphenous vein was identified and protected. The fracture site was exposed that communicated with the anteromedial aspect of the left ankle joint. The fracture hematoma was removed with curettage and saline lavage. A medial arthrotomy had been made to expose the ankle joint. The fracture was reduced and secured with a pointed bone clamp with small drill hole made for the clamp above the fracture. A K wire was placed from the tip of the medial malleolus across the fracture to also give temporary fracture fixation. Intraoperative C-arm imaging was obtained. The C-arm had been draped with a sterile plastic drape. The fracture aligned well and so did the ankle mortise. The Acumed double-pronged medial malleolar buttress plate was applied with the hand guide. The deltoid was split where the prongs engaged the medial malleolus. A olive wire was placed to secure the plate proximally and then screws were placed. A nonlocking screw was placed proximally and more distal screws were locking. The nonlocking screw was bicortical. Additional fixation was achieved with a intramedullary screw been inserted from the tip of the medial malleolus. This final screw provided additional fixation. There was no motion at the fracture site. There is no crepitus to movement of the ankle joint. The ankle joint move well.The tourniquet was deflated after 62 minutes. Hemostasis was achieved with electrocautery. The wound was thoroughly irrigated. The subcutaneous tissue was closed with 0 Vicryl. The skin was closed with a 3 oh barbed suture. Dermabond was applied to the skin incision. Xeroform, bacitracin and a short leg modified Ramón Griffith dressing with plaster splint to hold the ankle in neutral dorsiflexion was applied. He tolerated the procedure well. The tourniquet time was 62 minutes. A physician ex assistant/program director was utilized and was felt to be necessary to allow for exposure, protection of vital structures, reduction and internal fixation as well as closure and splint application.
[2020-11-05] MEDS ORDERED: oxyCODONE 5 MG TABLET PO PRN (11:07)
[2020-11-05] MEDS ORDERED: KETOROLAC 15 MG/ML VIAL IVP STA (11:07)
[2020-11-05] MEDS ORDERED: HYDROcod/ACETAM 5/325 MG TABLET PO PRN (11:07)
[2020-11-05] MEDS ORDERED: LACTATED RINGERS 1,000 ML IV ONE (11:09)
--- NOTE | 2020-11-05 11:24 | ANESTHESIA POST OP EVALUATION ---
Anesthesia Post Eval - Post Anesthesia Eval Vitals: Last Vital Signs Temp 36.9 C 11/05/20 11:20 Pulse 57 L 11/05/20 11:20 Resp 15 11/05/20 11:20 BP 117/65 11/05/20 11:20 Pulse Ox 97 11/05/20 11:20 CV Function Including HR & BP: positive: Stable Pain Control: positive: Satisfactory Nausea & Vomiting: positive: Negative Mental Status: positive: Baseline Respiratory Status: Airway Patent Hydration Status: Satisfactory Anesthesia Complications: positive: None
--- NOTE | 2020-11-05 11:47 | XRAY Report ---
PROCEDURE: OR C-Arm Procedure INDICATIONS: ORIF ANKLE TECHNIQUE: Operative assistance with C-arm fluoroscopy was provided during COMPARISON: CT lower extremity left dated 11/03/2020 reviewed. FINDINGS: Virtual anatomic alignment established after ORIF of a high diagonal medial malleolar fracture, estab lishing apposition of the fracture margins without any malalignment. No additional injury is seen. IMPRESSION: Virtual anatomic alignment achieved after ORIF. Reviewed by: Abdirashid Mcclendon MD on 11/05/2020 11:46 AM [facility] [[email or web address]] Approved by: Abdirashid Mcclendon MD on 11/05/2020 11:46 AM [facility] [[email or web address]] Station ID: [id number]
[2020-11-05 12:07] VITALS: BP 115/77
== END 2020-11-05 07:28 | disposition home or self-care (01) ==
LOC: SDS 07:27
PROVIDERS: ATTEND Orthopaedic Surgery
DX: S82.52XA Displaced fracture of medial malleolus of left tibia, initial encounter for closed fracture (principal); E11.9 Type 2 diabetes mellitus without complications; Z79.84 Long term (current) use of oral hypoglycemic drugs; I10 Essential (primary) hypertension; I25.2 Old myocardial infarction; Z87.891 Personal history of nicotine dependence; G47.33 Obstructive sleep apnea (adult) (pediatric); F43.22 Adjustment disorder with anxiety; E66.9 Obesity, unspecified; Z68.39 Body mass index [BMI] 39.0-39.9, adult; I25.10 Atherosclerotic heart disease of native coronary artery without angina pectoris
CPT/HCPCS: 27766; A9270; C1713; J0131; J0690; J7120

== ENCOUNTER 2020-11-07 02:56 | Emergency (ER) | payer MEDICAID ==
[2020-11-07 03:10] VITALS: BP 135/80
--- NOTE | 2020-11-07 03:23 | ED Physician Documentation ---
History of Present Illness - Stated complaint Stated Complaint: LT ANKLE DISCOMFORT - Chief complaint Chief Complaint: Ext Problem - History obtained from History obtained from: Patient - History of Present Illness Timing: Today Pain level now: 6 Improved by: no ameliorating factors Worsened by: no exacerbating factors - Additonal information Additional information: patient sustained crush injury to left ankle (medial malleolar fracture) 10/26 when a log rolled over his LLE. he was initially seen at another ED and splinted, followed up locally with orthopedic surgery and underwent ORIF 2 days ago. he presents to ED at this time due to increasing pain and pressure left ankle, particularly medial aspect. denies fever. he says he feels as though the splint is too tight Review of Systems Constitutional: denies: Fever, Chills, Sweats Cardiac: denies: Chest pain / pressure Respiratory: denies: Dyspnea Musculoskeletal: reports: Extremity pain, Extremity swelling PD PAST MEDICAL HISTORY - Past Medical History Cardiovascular: Hypertension, High cholesterol, Coronary artery disease, [place] Respiratory: Sleep apnea, CPAP use, Tuberculosis Endocrine/Autoimmune: None GI: None, GERD Psych: None, Anxiety, Panic attacks, Claustrophobia Musculoskeletal: Osteoarthritis, Gout - Past Surgical History Past Surgical History: Yes Cardiovascular: Coronary stent - Present Medications Home Medications: Ambulatory Orders Medication Instructions Recorded Confirmed Aspirin [Aspir 81] 81 mg PO DAILY 08/09/13 11/07/20 Atorvastatin [Lipitor] 40 mg PO DAILY 05/04/14 11/07/20 allopurinoL [Zyloprim] 100 mg PO BID 05/04/14 11/07/20 lisinopriL [Lisinopril] 10 mg PO DAILY 08/15/17 11/07/20 Albuterol Sulf [Ventolin Hfa 1 - 2 puffs INH Q4HR PRN #1 inhaler 08/11/19 11/07/20 Inhaler] Fluticasone Propionate [24 Hour 9.9 ml NS DAILY PRN #1 spray.susp 08/11/19 11/07/20 Allergy] Ascorbic Acid [Vitamin C] 1,000 mg PO DAILY 11/03/20 11/07/20 Cholecalciferol [Vitamin D3] 5,000 unit PO DAILY 11/03/20 11/07/20 Diclofenac Sodium [Voltaren] 2 gm TP BID PRN 11/03/20 11/07/20 Escitalopram Oxalate [Lexapro] 20 mg PO DAILY 11/03/20 11/07/20 Ibuprofen [Motrin] 600 mg PO Q6H PRN 11/03/20 11/07/20 Multivitamin 1 each PO DAILY 11/03/20 11/07/20 Nitroglycerin [Nitrostat] 0.4 mg SL Q5MIN PRN 11/03/20 11/07/20 Tamsulosin HCl [Flomax] 0.8 mg PO QPM 11/03/20 11/07/20 Zolpidem Tartrate [Ambien] 10 mg PO QPM PRN 11/03/20 11/07/20 metFORMIN [Glucophage] 500 mg PO BIDWM 11/03/20 11/07/20 oxyCODONE/ACET 5/325 [Percocet 5 1 tab PO QID PRN 11/03/20 11/07/20 mg/325 mg] oxyCODONE [Roxicodone] 5 mg PO Q4-6H #30 tablet 11/05/20 11/07/20 - Allergies Allergies/Adverse Reactions: Allergies Allergy/AdvReac Type Severity Reaction Status Date / Time Penicillins Allergy Rash Verified 11/07/20 03:10 - Social History Does the pt smoke?: No Smoking Status: Former smoker Does the pt drink ETOH?: Yes Does the pt have substance abuse?: No - Immunizations Immunizations are current?: Yes - POLST Patient has POLST: No PD ED PE NORMAL - Vitals Vital signs reviewed: Yes - General General: Alert and oriented X 3, No acute distress, Well developed/nourished - Extremities Extremities: Other (splint to LLE removed; surgical site is C/D/I with mild surrounding bruising appropriate for recent procedure. there is no abnormal warmth/heat to touch, no erythema, no discharge, and no bleeding. mild swelling left ankle as would be expected for recent surgery) - Neuro Neuro: No motor deficit, No sensory deficit, Other (LLE NVI with brisk capillary refill in toes, LTS intact) Results - Vitals Vitals: Oxygen O2 Source Room air Procedures - Splint (location) Lower extremity left Splint applied by: Tech Type of splint: Fiberglass, Short leg, Posterior Other: Patient tolerated well, No complications, Neurovascular intact PD MEDICAL DECISION MAKING - ED course Complexity details: considered differential, d/w patient ED course: patient is in NAD, c/o discomfort and sensation of pressure in his LLE splint, most pronounced at medial aspect. he is post-operative ORIF 2 days ago. the splint is removed in ED and surgical site is C/D/I with no evidence of infection. patient reported immediate relief of his discomfort with splint removal. a new splint was placed which he found to cause mild return of discomfort but this was relieved with placement of more padding between the ankle and the splint. Departure - Departure Disposition: 01 Home, Self Care Clinical Impression: Postoperative pain Condition: Good Instructions: ED Post Op Pain Follow-Up: Dionicio Mcclain MD [Provider Admit Priv/Credential] - Discharge Date/Time: 11/07/20 04:46
== END 2020-11-07 04:46 | disposition home or self-care (01) ==
LOC: ED 02:56
DX: G89.18 Other acute postprocedural pain (principal); M25.572 Pain in left ankle and joints of left foot; S82.52XD Displaced fracture of medial malleolus of left tibia, subsequent encounter for closed fracture with routine healing; W22.8XXD Striking against or struck by other objects, subsequent encounter; I10 Essential (primary) hypertension; Z79.82 Long term (current) use of aspirin; Z87.891 Personal history of nicotine dependence
CPT/HCPCS: 29515; 99282

== ENCOUNTER 2020-12-15 07:00 | Outpatient (CLI) | payer MEDICAID ==
--- NOTE | 2020-12-15 10:22 | XRAY Report ---
PROCEDURE: Ankle 3 View LT INDICATIONS: DISPLACED FX OF L MEDIAL MALLEOLUS TECHNIQUE: 3 views of the ankle were acquired. COMPARISON: Left ankle CT 11/03/2020 FINDINGS: Bones: Postsurgical changes are seen from fixation of the previously demonstrated medial malleolar fr acture with a metallic plate and screw construct and an interfragmentary screw. Fracture alignment is improved. Portions of the lucent fracture line are still visualized. Lucencies in the talar dome are most likely related to disuse osteopenia rather than an osteochondral lesion. Ankle mortise is megan lly aligned. No suspicious bony lesions. Small posterior and plantar calcaneal spurs are present. A type II os naviculare is present. Soft tissues: Mild soft tissue edema is seen surrounding the ankle. IMPRESSION: Postsurgical changes from fixation of the previously seen medial malleolar fracture with improved alignment. Reviewed by: Joel Ernandez MD on 12/15/2020 10:21 AM PST Approved by: Joel Ernandez MD on 12/15/2020 10:21 AM PST Station ID: [id number]
== END 2020-12-15 23:59 | disposition home or self-care (01) ==
LOC: DI.N 07:00
PROVIDERS: ATTEND Physician Assistant
DX: S82.52XA Displaced fracture of medial malleolus of left tibia, initial encounter for closed fracture (principal); Z48.89 Encounter for other specified surgical aftercare; E11.9 Type 2 diabetes mellitus without complications; I25.10 Atherosclerotic heart disease of native coronary artery without angina pectoris; Z12.5 Encounter for screening for malignant neoplasm of prostate; M10.9 Gout, unspecified
CPT/HCPCS: 36415; 80053; 80061; 82043; 82570; 83036; 83721; 84153; 84443; 84550; 85025

== ENCOUNTER 2020-12-15 09:30 | Outpatient (CLI) | payer MEDICAID ==
[2020-12-15 11:41] LABS: BASOPHILS # (AUTO) 0.1 10^3/uL (0.0-0.1); BASOPHILS % (AUTO) 0.8 %; EOSINOPHILS # (AUTO) 0.2 10^3/uL (0.0-0.7); EOSINOPHILS % (AUTO) 2.5 %; HGB - HEMOGLOBIN 15.4 g/dL (14.0-18.0); LYMPHOCYTES % (AUTO) 34.1 %; MEAN CORPUSCULAR HEMOGLOBIN 30.5 pg (27.0-31.0); MEAN CORPUSCULAR HGB CONC 34.2 g/dL (32.0-36.0); MEAN CORPUSCULAR VOLUME 89.1 fL (80.0-94.0); MEAN PLATELET VOLUME 10.7 fL (7.4-11.4); MONOCYTES # (AUTO) 0.6 10^3/uL (0.0-1.0); MONOCYTES % (AUTO) 10.5 %; NEUTROPHILS # (AUTO) 3.1 10^3/uL (1.5-6.6); NEUTROPHILS % (AUTO) 51.4 %; PLT - PLATELET COUNT 183 10^3/uL (130-450); RED BLOOD COUNT 5.05 10^6/uL (4.70-6.10); RED CELL DISTRIBUTION WIDTH 12.7 % (12.0-15.0)
[2020-12-15 12:03] LABS: CREATININE,URINE 258.2 mg/dL; MICROALBUMIN,URINE 1.8 mg/dL (0-300.0)
[2020-12-15 12:05] LABS: ALBUMIN/GLOBULIN RATIO 1.9 (1.0-2.2); ALKALINE PHOSPHATASE 65 IU/L (42-121); ALT ALANINE AMINOTRANSFERASE 30 IU/L (10-60); AST ASPARTATE AMINOTRANSFERASE 28 IU/L (10-42); BUN - BLOOD UREA NITROGEN 29 mg/dL (6-20); CALCIUM 9.5 mg/dL (8.5-10.3); CARBON DIOXIDE - CO2 22 mmol/L (21-32); CHLORIDE 103 mmol/L (101-111); CHOL/HDL RATIO 4.4 (<5.0); CHOLESTEROL 155 mg/dL; CREATININE 0.9 mg/dL (0.6-1.2); GFR - MDRD 88 (>89); GLUCOSE 130 mg/dL (70-100); HDL CHOLESTEROL 35 mg/dL; LDL CHOLESTEROL,CALCULATED 79 mg/dL; LDL/HDL RATIO 2.3 (<3.6); SODIUM 137 mmol/L (135-145); TOTAL PROTEIN 7.7 g/dL (6.7-8.2); TRIGLYCERIDES 205 mg/dL; URIC ACID 7.8 mg/dL (2.6-7.2); VLDL CHOLESTEROL 41 mg/dL
[2020-12-15 12:11] LABS: THYROID STIMULATING HORMONE 1.64 uIU/mL (0.34-5.60)
[2020-12-15 12:36] LABS: ESTIMATED AVERAGE GLUCOSE 123 mg/dL (70-100); HEMOGLOBIN A1c% 5.9 % (4.27-6.07)
== END 2020-12-15 09:31 | disposition home or self-care (01) ==
LOC: LAB.N 09:30
PROVIDERS: ATTEND Internal Medicine
DX: E11.9 Type 2 diabetes mellitus without complications (principal); Z12.5 Encounter for screening for malignant neoplasm of prostate; I25.10 Atherosclerotic heart disease of native coronary artery without angina pectoris; M10.9 Gout, unspecified
CPT/HCPCS: 36415; 80053; 80061; 82043; 82570; 83036; 83721; 84153; 84443; 84550; 85025

== ENCOUNTER 2020-12-15 10:23 | Outpatient (CLI) | payer MEDICAID ==
--- NOTE | 2020-12-15 12:38 | SLEEP CARE CONSULTATION ---
Information from patient questionnaire entered by Tima Gómez. I have reviewed and concur with the information entered by Tima Gómez. This document represents the service I personally performed and the decisions made by me, Saira Arellano MD, [facility]. History of Present Illness Service Date and Time: 12/15/2020 1023 Previous diagnosis: Moderate, Obstructive Sleep Apnea-Hypopnea Syndrome AHI: 26.3 (in 2013) Reason for follow up: first compliance (11/07/2020) Equipment type: CPAP Equipment obtained from: [employer] Mask style: Nasal pillows Prior sleep studies: Yes Year and Where: 2013 - [facility] Type of Sleep Study: Polysomnography HPI additional information: HPI: Mr. Ruiz was diagnosed to have moderate obstructive sleep apnea- hypopnea syndrome and returns today for follow up of CPAP therapy. The patient purchased the device from [email or web address] and was fitted with [employer]ics Nuance nasal pillows. He uses the device nightly and all through the night. The compliance report shows that he uses the device 30 nights out of the past 30 nights, averaging 11.5 hours a night. He complains of no particular problem with the device such as soreness on the face, dry nose, epistaxis, nasal congestion or headache. He thinks that the pressure of 8 - 12 cmH2O is comfortable. On the CPAP therapy he notices improvement in his sleep quality, and that he wakes up feeling fresher in the morning and more awake/alert during the day. His notices no snore at all. [place] Sleepiness Scale score is 2. The average residual AHI is 2.9; and average time in large leak per day is 0 minutes a night. The 90th percentile pressure is 11.4 CPAP Compliance Data - Data Reviewed with Patient Average duration of nightly device use: 11 h 32 min Compliance rate %: 100 Current pressure setting (cmH2O): 8-12 Average residual AHI: 2.9 Subjective Patient concerns: reports: nasal congestion Initial [place] Sleepiness Scale score: 15 (in 2013) Current [place] Sleepiness Scale score: 2 Allergies and Home Medications Drug allergies reviewed: Yes Home medication list reviewed: Yes Review of Systems Review of systems same as previous: Yes Physical Exam Height: 5 ft 8 in Weight: 263 lb Body Mass Index: 39.9 BMI Classification: Obese Impression and Plan IMPRESSION: 1. Obstructive Sleep Apnea-Hypopnea Syndrome, moderate (AHI = 26.3) with the patient continuing to do well on nasal CPAP therapy. He has excellent compliance and significant clinical benefits. The current pressure appears effective and comfortable. Overall, he is very satisfied with treatment and plans to continue with it long-term. No adjustment is necessary today. PLAN: 1. Continue with autoCPAP set at 8 - 12 cm H2O. 2. Try ResMed P-10 nasal pillows with Brigette headgear. 3. Return in one year for follow up or earlier if there is any problem with the treatment. Visit Type: In Office Time Spent with Patient (minutes): 15 Provider Statement: I spent 100% of the Face to Face Visit with the patient with greater than 50% spent counseling the patient and coordination of care.
== END 2020-12-15 10:24 | disposition home or self-care (01) ==
LOC: SC 10:23
PROVIDERS: ATTEND Internal Medicine Pulmonary Disease
DX: G47.33 Obstructive sleep apnea (adult) (pediatric) (principal); E66.9 Obesity, unspecified; Z68.39 Body mass index [BMI] 39.0-39.9, adult
CPT/HCPCS: 99212

== ENCOUNTER 2021-05-18 10:47 | Outpatient (CLI) | payer MEDICAID ==
--- NOTE | 2021-05-18 13:43 | XRAY Report ---
PROCEDURE: Tib/Fib LT INDICATIONS: DISPLACED FX OF MEDIAL MALLEOLUS OF L TIBIA TECHNIQUE: 2 views of the tibia and fibula were acquired. COMPARISON: Left ankle radiographs 12/15/2020. Left lower extremity CT 11/03/2020. FINDINGS: Bones: ORIF at the medial malleolus. No plate liftoff. No hardware fracture. Anatomic alignment. No fractures visualized. No dislocations. No suspicious bony lesions. Soft tissues: No suspicious soft tissue calcifications or masses. IMPRESSION: Stable appearance of the left medial malleolus ORIF. Reviewed by: Agustin Phan MD on 05/18/2021 1:42 PM PDT Approved by: Agustin Phan MD on 05/18/2021 1:42 PM PDT Station ID: [id number]
--- NOTE | 2021-05-18 14:10 | XRAY Report ---
PROCEDURE: Ankle 3 View LT INDICATIONS: DISPLACED FX OF MEDIAL MALLEOLUS OF L TIBIA TECHNIQUE: 3 views of the ankle were acquired. COMPARISON: 12/16/2019 FINDINGS: Bones: Postsurgical changes compatible with prior ORIF of medial malleolus fracture are stable ml red to prior exam. Portion of the fracture lucency persists. Ankle mortise is normally aligned. No s uspicious bony lesions. Calcaneal bone spurs are stable. Soft tissues: No tibiotalar joint effusion. Achilles tendon appears normal. IMPRESSION: Expected postsurgical change from ORIF of medial malleolus fracture. Reviewed by: Italia Watson MD, PhD on 05/18/2021 2:08 PM PDT Approved by: Italia Watson MD, PhD on 05/18/2021 2:08 PM PDT Station ID: [id number]
== END 2021-05-18 23:59 | disposition home or self-care (01) ==
LOC: DI.N 10:47
PROVIDERS: ATTEND Orthopaedic Surgery
DX: S82.52XD Displaced fracture of medial malleolus of left tibia, subsequent encounter for closed fracture with routine healing (principal)

== ENCOUNTER 2021-05-28 17:03 | Emergency (ER) | payer MEDICAID ==
[2021-05-28 17:38] VITALS: BP 139/89
[2021-05-28] MEDS ORDERED: BUFFERED LIDOCAINE 10 ML SYRINGE SUBQ STA (18:12)
[2021-05-28] MEDS ORDERED: TETANUS/DIPHTHERIA/PERTUSSIS 0.5 ML SYRINGE IM ONE (18:12)
--- NOTE | 2021-05-28 18:13 | ED Physician Documentation ---
PD HPI LOWER EXT INJURY - Stated complaint Stated Complaint: SPLINTER LT BIG TOE - Chief complaint Chief Complaint: Ext Problem - History obtained from History obtained from: Patient - History of Present Illness PD HPI LOW EXT INJURY LOCATION: Left - Additional information Additional information: He is not sure when but he thinks he has a splinter under the left great toenail. It started to become discolored. Tetanus is unknown. Review of Systems Constitutional: reports: Reviewed and negative Eyes: reports: Reviewed and negative Ears: reports: Reviewed and negative Nose: reports: Reviewed and negative Throat: reports: Reviewed and negative PD PAST MEDICAL HISTORY - Past Medical History Cardiovascular: Hypertension, High cholesterol, Coronary artery disease, [place] Respiratory: Sleep apnea, CPAP use, Tuberculosis Endocrine/Autoimmune: None GI: None, GERD Psych: None, Anxiety, Panic attacks, Claustrophobia Musculoskeletal: Osteoarthritis, Gout - Past Surgical History Past Surgical History: Yes Cardiovascular: Coronary stent - Present Medications Home Medications: Ambulatory Orders Medication Instructions Recorded Confirmed Aspirin [Aspir 81] 81 mg PO DAILY 08/09/13 11/07/20 Atorvastatin [Lipitor] 40 mg PO DAILY 05/04/14 11/07/20 allopurinoL [Zyloprim] 100 mg PO BID 05/04/14 11/07/20 lisinopriL [Lisinopril] 10 mg PO DAILY 08/15/17 11/07/20 Albuterol Sulf [Ventolin Hfa 1 - 2 puffs INH Q4HR PRN #1 inhaler 08/11/19 11/07/20 Inhaler] Fluticasone Propionate [24 Hour 9.9 ml NS DAILY PRN #1 spray.susp 08/11/19 11/07/20 Allergy] Ascorbic Acid [Vitamin C] 1,000 mg PO DAILY 11/03/20 11/07/20 Cholecalciferol [Vitamin D3] 5,000 unit PO DAILY 11/03/20 11/07/20 Diclofenac Sodium [Voltaren] 2 gm TP BID PRN 11/03/20 11/07/20 Escitalopram Oxalate [Lexapro] 20 mg PO DAILY 11/03/20 11/07/20 Ibuprofen [Motrin] 600 mg PO Q6H PRN 11/03/20 11/07/20 Multivitamin 1 each PO DAILY 11/03/20 11/07/20 Nitroglycerin [Nitrostat] 0.4 mg SL Q5MIN PRN 11/03/20 11/07/20 Tamsulosin HCl [Flomax] 0.8 mg PO QPM 11/03/20 11/07/20 Zolpidem Tartrate [Ambien] 10 mg PO QPM PRN 11/03/20 11/07/20 metFORMIN [Glucophage] 500 mg PO BIDWM 11/03/20 11/07/20 oxyCODONE/ACET 5/325 [Percocet 5 1 tab PO QID PRN 11/03/20 11/07/20 mg/325 mg] oxyCODONE [Roxicodone] 5 mg PO Q4-6H #30 tablet 11/05/20 11/07/20 oxyCODONE [Roxicodone] 5 mg PO Q4-6H #30 tablet 11/18/20 - Allergies Allergies/Adverse Reactions: Allergies Allergy/AdvReac Type Severity Reaction Status Date / Time Penicillins Allergy Rash Verified 05/28/21 17:37 - Social History Does the pt smoke?: No Smoking Status: Former smoker Does the pt drink ETOH?: Yes Does the pt have substance abuse?: No - Immunizations Immunizations are current?: Yes - POLST Patient has POLST: No PD ED PE NORMAL - Vitals Vital signs reviewed: Yes - General General: Alert and oriented X 3, No acute distress - Extremities Extremities: Other (There is a discoloration under the great toenail of the left foot medially with some tenderness there. No obvious signs of infection.) - Neuro Neuro: Alert and oriented X 3, Normal speech Results - Vitals Vitals: Vital Signs - 24 hr 05/28/21 17:35 Temperature 36.6 C Heart Rate 77 Respiratory 15 Rate Blood Pressure 139/89 H O2 Saturation 99 Oxygen O2 Source Room air Procedures - General procedure General procedure: The left great toe was anesthetized using a digital block with buffered lidocaine with excellent anesthesia, the medial fifth of the toenail was removed with sharp dissection and removed. There was some foreign material on the underside of the nail which was nonspecific. Departure - Departure Disposition: 01 Home, Self Care Clinical Impression: Foreign body of toe of left foot Qualifiers: Encounter type: initial encounter Qualified Code(s): S90.455A - Superficial foreign body, left lesser toe(s), initial encounter Condition: Good Record reviewed to determine appropriate education?: Yes Instructions: ED Foreign Body Soft Tissue
== END 2021-05-28 19:00 | disposition home or self-care (01) ==
LOC: ED 17:03
DX: S90.452A Superficial foreign body, left great toe, initial encounter (principal); W45.8XXA Other foreign body or object entering through skin, initial encounter; I10 Essential (primary) hypertension; E78.00 Pure hypercholesterolemia, unspecified; I25.10 Atherosclerotic heart disease of native coronary artery without angina pectoris; I25.2 Old myocardial infarction; G47.30 Sleep apnea, unspecified; F41.9 Anxiety disorder, unspecified; F41.0 Panic disorder [episodic paroxysmal anxiety]; F40.240 Claustrophobia; M19.90 Unspecified osteoarthritis, unspecified site; M10.9 Gout, unspecified; Z95.5 Presence of coronary angioplasty implant and graft; Z79.82 Long term (current) use of aspirin; Z79.899 Other long term (current) drug therapy; Z87.891 Personal history of nicotine dependence; Z86.11 Personal history of tuberculosis
CPT/HCPCS: 90471; 99283